=== PATIENT | female | born 1965 | race Hispanic/Latino ===

== ENCOUNTER 2017-11-12 14:57 | Emergency (ER) | payer MEDICAID ==
[2017-11-12 15:10] VITALS: O2SAT 98
--- NOTE | 2017-11-12 15:44 | C.PDOC ---
History Of Present Illness 52 year old female presents to ED for evaluation of lightheadedness, and nausea since today. Notes having similar symptoms in the past which was related to dehydration. Otherwise, denies vomiting, diarrhea, abdominal pain, or fever. Time Seen by Provider: 11/12/17 15:17 Chief Complaint (Nursing): GI Problem History Per: Patient History/Exam Limitations: no limitations Onset/Duration Of Symptoms: Hrs Current Symptoms Are (Timing): Still Present Recent travel outside of the [place]: No Additional History Per: Patient Past Medical History Reviewed: Historical Data, Nursing Documentation, Vital Signs Vital Signs: Last Vital Signs Temp 98.4 F 11/12/17 15:05 Pulse 82 11/12/17 15:05 Resp 20 11/12/17 15:05 BP 135/85 11/12/17 15:05 Pulse Ox 98 11/12/17 15:44 - Medical History PMH: Anemia, Back Problems, Hypercholesterolemia, Hypothyroidism, Chronic Pain ( Thyroid disease) - [facility] Procedures [facility] NEC (05/28/98) MANUAL ASSIST DELIV NEC (05/28/98) Family History: States: Unknown Family Hx - Social History Hx Tobacco Use: Yes Hx Alcohol Use: Yes Hx Substance Use: No - Immunization History Hx Tetanus Toxoid Vaccination: No Hx Influenza Vaccination: No Hx Pneumococcal Vaccination: No Review Of Systems Except As Marked, All Systems Reviewed And Found Negative. Constitutional: Negative for: Fever, Chills Cardiovascular: Positive for: Light Headedness. Negative for: Chest Pain, Palpitations Respiratory: Negative for: Cough, Shortness of Breath Gastrointestinal: Positive for: Nausea. Negative for: Vomiting, Abdominal Pain , Diarrhea Physical Exam - Physical Exam Appears: Non-toxic, No Acute Distress Skin: Normal Color, Warm, Dry Head: Atraumatic, Normacephalic Eye(s): bilateral: Normal Inspection Oral Mucosa: Moist Neck: Normal ROM, Supple Chest: Symmetrical Cardiovascular: Rhythm Regular, No Murmur Respiratory: Normal Breath Sounds, No Rales, No Rhonchi, No Wheezing Gastrointestinal/Abdominal: Soft, No Tenderness Extremity: Normal ROM Neurological/Psych: Oriented x3, Normal Speech ED Course And Treatment - Laboratory Results Result Diagrams: 11/12/17 16:00 11/12/17 16:00 O2 Sat by Pulse Oximetry: 98 (RA) Pulse Ox Interpretation: Normal Reevaluation Time: 17:17 Reassessment Condition: Improved ("I FEEL BACK TO NORMAL", +UO S/P IVF) Disposition Counseled Patient/Family Regarding: Diagnosis, Need For Followup - Disposition Referrals: YOUR,PMD [Other] Disposition: HOME/ ROUTINE Disposition Time: 17:18 Condition: IMPROVED Instructions: Dehydration, Adult (DC) Forms: [facility] (Nepali) - Clinical Impression Clinical Impression: Dehydration - Scribe Statement The provider has reviewed the documentation as recorded by the Scribe Jenifer Aj All medical record entries made by the Scribe were at my direction and personally dictated by me. I have reviewed the chart and agree that the record accurately reflects my personal performance of the history, physical exam, medical decision making, and the department course for this patient. I have also personally directed, reviewed, and agree with the discharge instructions and disposition.
[2017-11-12 16:10] LABS: BASO # 0.1 K/uL (0.0-0.2); BASO % 0.7 % (0.0-2.0); EOS # 0.2 K/uL (0.0-0.7); EOS % 3.1 % (0.0-4.0); HEMOGLOBIN 15.1 g/dL (11.0-16.0); LYMPH % 25.9 % (20.0-40.0); MEAN CELL VOLUME 91.8 fL (81.0-99.0); MEAN CORPUSCULAR HEMOGLOBIN 32.3 pg (27.0-31.0); MEAN CORPUSCULAR HGB CONC 35.2 g/dL (33.0-37.0); MEAN PLATELET VOLUME 10.5 fL (7.2-11.7); MONO # 0.4 K/uL (0.0-0.8); MONO % 4.9 % (0.0-10.0); NEUT # 5.1 K/uL (1.8-7.0); NEUT % 65.4 % (50.0-75.0); RBC 4.68 Mil/uL (3.80-5.20); WHITE BLOOD COUNT 7.7 K/uL (4.8-10.8)
[2017-11-12 16:22] LABS: BLOOD UREA NITROGEN 9 mg/dL (7-17); CALCIUM 9.4 mg/dl (8.6-10.4); GFR AFRICAN-AMERICAN > 60; GFR NON-AFRICAN AMERICAN > 60
[2017-11-12 17:39] VITALS: BP 126/73; PULSE 78; RESP 18; TEMP 98
[2017-11-12 17:52] LABS: SQUAMOUS EPITHIAL < 1 /hpf (0-5); URINE BILIRUBIN NEGATIVE (NEGATIVE); URINE BLOOD NEGATIVE (NEGATIVE); URINE CLARITY Clear (Clear); URINE COLOR Straw (YELLOW); URINE GLUCOSE (UA) NORMAL (Normal); URINE LEUKOCYTE ESTERASE NEG Leu/uL (Negative); URINE PROTEIN NEGATIVE (NEGATIVE); URINE UROBILINOGEN NORMAL mg/dL (0.2-1.0)
== END 2017-11-12 17:39 | disposition home or self-care (01) ==
LOC: C.ER 14:57
DX: E86.0 Dehydration (principal)
CPT/HCPCS: 80048; 81001; 82948; 85025; 96360; 99284; J7030